=== PATIENT | female | born 1980 | race Caucasian/White ===

== ENCOUNTER 2023-04-13 10:02 | Emergency (ER) | payer MEDICAID, SELFPAY ==
[2023-04-13 10:08] VITALS: BP 117/64; PULSE 65; RESP 17; TEMP 36.3; O2SAT 98
--- NOTE | 2023-04-13 10:19 | ED.GENADUL_ITS ---
HPI General Date/Time Provider Initiated Documentation: 04/13/23 10:19 . HPI Narrative: 42-year-old female with a past medical history of drug use, who is currently transitioning to methadone and moving. Presents today for methadone dosing. Patient states that she had been at the [facility] in [facility], where she would be prescribed a dose of 140 mg total with a morning dose of 80 and an evening dose of 60. She states that she contacted by clinic today, and they were not able to get the paperwork in time, she does have an appointment tomorrow, but needs a dosing for today. Side for feeling slightly anxious she denies any other complaints. No chest pain or shortness of breath. No fever or chills. Related Data Allergies Allergy/AdvReac Type Severity Reaction Status Date / Time codeine AdvReac Intermediate agitation Unverified 04/13/23 10:12 tramadol Allergy Intermediate Hives Uncoded 04/13/23 10:12 General Stated Complaint: DrugWithdr/MAT MACKENZIE: 3 Review of Systems All systems reviewed & are unremarkable except as noted in HPI and below Exam Narrative Exam Narrative: 1.Const: Well-nourished, Well-developed, appearing stated age 2.Eyes: PERRL, no conjunctival injection, and symmetrical lids. 3.ENT: Atraumatic external nose and ears. Moist MM. Neck: Symmetric, trachea midline, No thyromegaly. 4.CVS: +S1/S2, No murmurs or gallops. Peripheral pulses 2+ and equal in all extremities. Brisk capillary refill in all extremities. 5.RESP: Unlabored respiratory effort. Clear to auscultation bilaterally. No wheezes rales or rhonchi 6.GI: Soft, Nontender/Nondistended, No hepatosplenomegaly. No guarding or rebound. 7.MSK: Normocephalic/Atraumatic, Extremities w/o deformity or ttp No cyanosis or clubbing, Normal movement of all extremities 8.Skin: Warm, Dry. No rashes. Multiple small picking lesions over the patient's hand face and arms. 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 Sensation grossly intact, no focal neurologic deficits. 10.Psych: (AAO) x3. Appropriate mood and affect Course Vital Signs Vital signs: Vital Signs Temperature 36.3 C L 04/13/23 10:08 Pulse 65 04/13/23 10:08 Respiratory Rate 17 04/13/23 10:08 Blood Pressure 117/64 04/13/23 10:08 Pulse Oximetry 98 04/13/23 10:08 Temperature 36.3 C L 04/13/23 10:08 Temperature Source Temporal Artery Scan 04/13/23 10:08 Pulse 65 04/13/23 10:08 Respiratory Rate 17 04/13/23 10:08 Blood Pressure 117/64 04/13/23 10:08 Blood Pressure Position Sitting 04/13/23 10:08 Pulse Oximetry 98 04/13/23 10:08 Oxygen Delivery Method Room Air 04/13/23 10:08 Oxygen Flow Rate 0 04/13/23 10:08 Medical Decision Making 42-year-old female with a past medical history of drug use, who is currently transitioning to methadone and moving. Presents today for methadone dosing. Patient states that she had been at the [facility] in [facility], where she would be prescribed a dose of 140 mg total with a morning dose of 80 and an evening dose of 60. She states that she contacted by clinic today, and they were not able to get the paperwork in time, she does have an appointment tomorrow, but needs a dosing for today. Side for feeling slightly anxious she denies any other complaints. No chest pain or shortness of breath. No fever or chills. Exam demonstrates well-appearing female. No significant abnormalities. We will confirm the dose with the [facility], and then administer her dose today as a one-time exception. 10:[address] [facility] [place] was contacted, they confirm that the patient was taking 140 mg total with a split dose of 80 and 60. She will be given this dose here today. No other complaints at this time. [facility]. I have extensively reviewed the treatment plan and discharge instructions with the patient. I have addressed all patient concerns at this time. The patient was made aware of what symptoms to monitor for that would wa rrant a return to the emergency department. Discussed the plan with the patient, they demonstrate verbal understanding and agreement with our assessment and plan at this time. The documentation in this chart was dictated using [employer] dictation software. Please excuse any dictation errors. Quality:SDOH Health Related Social Needs: No Data to Display PFSH All Active Problems (Updated 04/13/23 @ 10:57 by He Rodrigues DO) Methadone use (Acute) Social History Smoking/Tobacco Use Status: Current every day Tobacco Type: cigarettes and e- cigarettes Smoking risk assessment performed?: Yes Alcohol Intake: never Drug use: Current Sobriety Substance use type: does not use Details: MAT Program 40 days no other drug use. FELICERN 04/13/23 Discharge Plan Disposition Patient Disposition: Home Discharge Details Chief Complaint: DrugWithdr/MAT Clinical Impression: Methadone use Primary Care Provider: Unknown,Unknown ED Provider: He Rodrigues Discharge Instructions Instructions: Methadone (By mouth) Additional Instructions: Your methadone use has been confirmed. You will be given your total daily dose of 140 mg at this time. Please follow-up at the [facility] clinic tomorrow. If you notice any worsening of your symptoms, or any new symptoms such as vomiting, diarrhea, fever, chills, shortness of breath, chest pain, numbness, weakness, or fainting , please return immediately to the emergency department for reevaluation. Please follow up with your primary care provider as soon as possible for reassessment and reevaluation. As always, it was a pleasure participating in your medical care today.
[2023-04-13] MEDS: Methadone Liquid 10 MG/ML 140 MG PO (11:10)
--- NOTE | 2023-04-13 12:20 | NUR.NOTE ---
Referral faxed to [facility] request for MAT, provider note and demographics. Nursing Note:
--- NOTE | 2023-04-13 12:22 | NUR.NOTE ---
Call to [facility], [place], [place] . Methadone dose as of 04/12/23 80mg am and 60mg to go home w/pt. Split dose. Nursing Note:
== END 2023-04-13 11:13 | disposition home or self-care (01) ==
PROVIDERS: Emergency Provider Student in an Organized Health Care Education/Training Program
DX: F11.20 Opioid dependence, uncomplicated (principal)
CPT/HCPCS: 99283

== ENCOUNTER 2023-04-14 12:13 | Emergency (ER) | payer MEDICAID, SELFPAY ==
[2023-04-14 12:18] VITALS: BP 160/92; PULSE 72; RESP 18; TEMP 36.8; O2SAT 98
--- NOTE | 2023-04-14 14:02 | ED.GENADUL_ITS ---
HPI General Mode of arrival: ambulatory . Date/Time Provider Initiated Documentation: 04/14/23 12:54 . Limitations to Documentation: no limitations . Information obtained by: patient . HPI Narrative: 42-year-old female with history of opioid use disorder, here with chief complaint of withdrawal. Patient notes she has not been able to secure her methadone dosing today. Patient was seen here yesterday for the same. She is relocating to the area and needs to establish care with [facility]. She attempted to establish care today at [facility] notes she waited 2 hours, and records were not transferred from [facility] and they were unable to provide her dose. She is currently feeling anxious and extremely uncomfortable as a result of the withdrawal. Related Data Allergies Allergy/AdvReac Type Severity Reaction Status Date / Time codeine AdvReac Intermediate agitation Unverified 04/13/23 10:12 tramadol Allergy Intermediate Hives Uncoded 04/13/23 10:12 General Stated Complaint: DrugWithdr/MAT MACKENZIE: 4 Review of Systems Constitutional Constitutional: Reports body ache(s) Exam Const General: cooperative HENMT Mouth: moist mucous membranes Resp Auscultation: clear to auscultation bilaterally, no rales, no rhonchi and no wheezes Cardio Rate: regular rate and not tachycardic Rhythm: regular rhythm Neuro General: patient alert, patient awake and tone normal Course Vital Signs Vital signs: Vital Signs Temperature 36.8 C 04/14/23 12:18 Pulse 72 04/14/23 12:18 Respiratory Rate 18 04/14/23 12:18 Blood Pressure 160/92 H 04/14/23 12:18 Pulse Oximetry 98 04/14/23 12:18 Temperature 36.8 C 04/14/23 12:18 Temperature Source Temporal Artery Scan 04/14/23 12:18 Pulse 72 04/14/23 12:18 Respiratory Rate 18 04/14/23 12:18 Blood Pressure 160/92 H 04/14/23 12:18 Blood Pressure Position Sitting 04/14/23 12:18 Pulse Oximetry 98 04/14/23 12:18 Oxygen Delivery Method Room Air 04/14/23 12:18 Oxygen Flow Rate 0 04/14/23 12:18 Medical Decision Making 42-year-old female with opioid use disorder, on methadone and unable to secure dose today, here requesting methadone dosing. This is the second day that patient has been here for methadone. I have encouraged that she follow-up tomorrow with [facility] clinic. Quality:SDOH Health Related Social Needs: No Data to Display PFSH All Active Problems (Updated 04/14/23 @ 14:11 by Dino Interiano MD) Methadone dependence (Acute) Opioid use disorder (Acute) Methadone use (Acute) Social History Smoking/Tobacco Use Status: Current every day Tobacco Type: cigarettes and e- cigarettes Smoking risk assessment performed?: Yes Alcohol Intake: never Drug use: Current Sobriety Substance use type: does not use Details: MAT Program 40 days no other drug use. FELICE,RN 04/13/23 Discharge Plan Disposition Patient Disposition: Home Discharge Details Chief Complaint: DrugWithdr/MAT Clinical Impression: Opioid use disorder, Methadone dependence Primary Care Provider: Unknown,Unknown ED Provider: Dino Interiano Discharge Instructions Instructions: Methadone (By mouth) Additional Instructions: Please follow-up with [facility] clinic tomorrow morning. Future methadone dosing should be provided at the [facility] clinic. Please contact your primary care physician to arrange follow-up. Return to the ER immediately for any worsening or new concerning symptoms. Referrals: [facility] [Outside]
[2023-04-14] MEDS: Methadone Liquid 10 MG/ML 140 MG PO (14:08)
== END 2023-04-14 14:17 | disposition home or self-care (01) ==
PROVIDERS: Emergency Provider Student in an Organized Health Care Education/Training Program
DX: F11.20 Opioid dependence, uncomplicated (principal); F17.210 Nicotine dependence, cigarettes, uncomplicated; F17.290 Nicotine dependence, other tobacco product, uncomplicated
CPT/HCPCS: 99283